=== PATIENT | male | born 1975 | race Caucasian/White ===

== ENCOUNTER 2018-08-06 10:36 | Emergency (ER) | payer MEDICAID ==
[2018-08-06 10:45] VITALS: BP 157/96
--- NOTE | 2018-08-06 10:47 | EDM.PDOC ---
ED HPI GENERAL MEDICAL PROBLEM - General Chief Complaint: Abdominal Pain Stated Complaint: SOB, LIGHT HEADED, PALE Time Seen by Provider: 08/06/18 10:47 Source of Information: Reports: Patient, Old Records, RN, RN Notes Reviewed History Limitations: Reports: No Limitations - History of Present Illness INITIAL COMMENTS - FREE TEXT/NARRATIVE: Pt presents to ER on foot stating that he was out walking around town and his feet and leg became tired and sore, then he developed epigastric abdominal pain. He states that currently he is pain free. He has been having a similar pain on and off at the epigastric abdomen for maybe a month or so. He denies fever, chills, vomiting, diarrhea or constipation. He is not sure if he has heart burn or not. Admits to occasional nausea. Onset: Today Duration: Resolved Prior to Arrival Location: Reports: Abdomen Quality: Reports: Ache Severity: Moderate Improves with: Reports: None Worsens with: Reports: None Associated Symptoms: Reports: No Other Symptoms Upper Abdomen Pain Score (Numeric/FACES): 6 - Related Data Allergies Allergy/AdvReac Type Severity Reaction Status Date / Time No Known Allergies Allergy Verified 08/06/18 10:40 Home Meds: Home Meds Venlafaxine HCl [Venlafaxine ER] 75 mg PO DAILY 02/13/15 [History] Vitamin B Complex [Stress B] 1 each PO DAILY 02/13/15 [History] buPROPion [Wellbutrin SR] 150 mg PO DAILY 08/06/18 [History] Past Medical History Cardiovascular History: Reports: Other (See Below) (congenital valve defect) - Past Surgical History Cardiovascular Surgical History: Reports: Other (See Below) (valve surgery as a small child) Social & Family History - Family History Family Medical History: Unobtainable (pt unsure) - Living Situation & Occupation Living situation: Reports: with Family Occupation: Disabled ED ROS GENERAL - Review of Systems Review Of Systems: ROS reveals no pertinent complaints other than HPI. ED EXAM, GI/ABD - Physical Exam Exam: See Below Exam Limited By: No Limitations General Appearance: Alert, WD/WN, No Apparent Distress Eyes: Bilateral: Normal Appearance Ears: Normal External Exam, Hearing Grossly Normal Nose: Normal Inspection, Normal Mucosa, No Blood Throat/Mouth: Normal Inspection, Normal Lips, Normal Oropharynx, Normal Voice, No Airway Compromise Head: Atraumatic, Normocephalic Neck: Normal Inspection, Supple, Non-Tender, Full Range of Motion Respiratory/Chest: No Respiratory Distress, Lungs Clear, Normal Breath Sounds, No Accessory Muscle Use, Chest Non-Tender Cardiovascular: Regular Rate, Rhythm, No Murmur GI/Abdominal Exam: Normal Bowel Sounds, Soft, Non-Tender, No Distention, No Abnormal Bruit. No: Guarding, Rigid, Rebound (Male) Exam: Deferred Rectal (Males) Exam: Deferred Back Exam: Normal Inspection. No: CVA Tenderness (L), CVA Tenderness (R) Extremities: Normal Inspection Neurological: Alert, Oriented, Normal Gait, No Motor/Sensory Deficits Psychiatric: Normal Mood Skin Exam: Warm, Dry, Intact, Normal Color, No Rash Course - Vital Signs Last Recorded V/S: Last Vital Signs Temp 36.4 C 08/06/18 10:42 Pulse 116 H 08/06/18 10:42 Resp 18 08/06/18 10:42 BP 157/96 H 08/06/18 10:42 Pulse Ox 91 L 08/06/18 10:42 - Orders/Labs/Meds Labs: Laboratory Tests 08/06/18 08/06/18 Range/Units 11:58 11:58 WBC 8.6 (5.0-10.0) 10^3/uL RBC 4.90 (4.6-6.2) 10^6/uL Hgb 14.7 (14.0-18.0) g/dL Hct 44.0 (40.0-54.0) % MCV 89.8 (80-100) fL MCH 30.0 (27.0-34.0) pg MCHC 33.4 (33.0-35.0) g/dL Plt Count 206 (150-450) 10^3/uL Neut % (Auto) 80.4 H (42.2-75.2) % Lymph % (Auto) 10.9 L (20.5-50.1) % [place] % (Auto) 6.0 (2-8) % Eos % (Auto) 2.2 (1.0-3.0) % Baso % (Auto) 0.5 (0.0-1.0) % Sodium 137 (135-145) mmol/L Potassium 4.4 (3.6-5.0) mmol/L Chloride 102 (101-111) mmol/L Carbon Dioxide 25.0 (21.0-31.0) mmol/L Anion Gap 14.4 BUN 18 (7-18) mg/dL Creatinine 1.1 (0.6-1.3) mg/dL Est Cr Clr Drug Dosing 80.56 mL/min Estimated GFR (MDRD) > 60 BUN/Creatinine Ratio 16.36 Glucose 106 H (74-105) mg/dL Calcium 9.1 (8.4-10.2) mg/dl Total Bilirubin 1.1 H (0.2-1.0) mg/dL AST 27 (10-42) IU/L ALT 15 (10-60) IU/L Alkaline Phosphatase 46 (42-121) IU/L Total Protein 6.8 (6.7-8.2) g/dl Albumin 4.2 (3.2-5.5) g/dl Globulin 2.6 Albumin/Globulin Ratio 1.62 Amylase 70 (28-100) U/L Lipase 65 H (22-51) U/L Departure - Departure Time of Disposition: 12:53 Disposition: Home, Self-Care 01 Condition: Good Clinical Impression: Abdominal pain Qualifiers: Abdominal location: epigastric Qualified Code(s): R10.13 - Epigastric pain - Discharge Information *PRESCRIPTION DRUG MONITORING PROGRAM REVIEWED*: No *COPY OF PRESCRIPTION DRUG MONITORING REPORT IN PATIENT ANNELIESE: No Instructions: Abdominal Pain, Adult, [id number] Forms: ED Department Discharge Additional Instructions: Rx: Ranitidine 150mg Follow up in clinic with your primary doctor this week or next week for recheck , and gallbladder evaluation if needed.
[2018-08-06 12:33] LABS: ANION GAP 14.4; CHLORIDE,CL 102 mmol/L (101-111); SODIUM,NA 137 mmol/L (135-145)
== END 2018-08-06 13:03 | disposition home or self-care (01) ==
LOC: DL.ED 10:36
DX: R10.13 Epigastric pain (principal); Z79.899 Other long term (current) drug therapy
CPT/HCPCS: 36415; 80053; 82150; 83690; 85025; 99285

== ENCOUNTER 2022-09-06 05:54 | Day surgery (SDC) | payer MEDICAID ==
[2022-09-06] MEDS ORDERED: Midazolam 1 MG/ML 2 ML SDV IV ONE (05:55)
[2022-09-06] MEDS ORDERED: fentaNYL 100 MCG/2 ML SDV IV ONE (05:55)
[2022-09-06] MEDS ORDERED: fentaNYL 100 MCG/2 ML SDV ONE (06:17)
[2022-09-06] MEDS ORDERED: Midazolam 1 MG/ML 2 ML SDV ONE (06:17)
[2022-09-06] MEDS: Dextrose 5%-0.45% NaCl 1,000 ML IV SCH (06:20)
[2022-09-06] MEDS: fentaNYL 100 MCG/2 ML SDV IV ONE ×2 (07:13→07:14)
[2022-09-06] MEDS: Midazolam 1 MG/ML 2 ML SDV IV ONE ×2 (07:15→07:16)
[2022-09-06 10:17] VITALS: BP 124/70; PULSE 80
== END 2022-09-06 09:53 | disposition home or self-care (01) ==
LOC: DL.ENDO 05:54
PROVIDERS: ATTEND Internal Medicine Gastroenterology
DX: K22.2 Esophageal obstruction (principal); K21.9 Gastro-esophageal reflux disease without esophagitis; K22.10 Ulcer of esophagus without bleeding; R23.4 Changes in skin texture; E66.09 Other obesity due to excess calories; F90.9 Attention-deficit hyperactivity disorder, unspecified type; E78.5 Hyperlipidemia, unspecified; H69.80 Other specified disorders of Eustachian tube, unspecified ear; I10 Essential (primary) hypertension; Z88.8 Allergy status to other drugs, medicaments and biological substances; Z98.890 Other specified postprocedural states; Z68.27 Body mass index [BMI] 27.0-27.9, adult
CPT/HCPCS: 43239; 87077; J2250; J3010; J7042

== ENCOUNTER → 2022-12-12 | Day surgery (SDC) | payer MEDICAID ==
[~2022-12-12] MED LIST: Dextrose 5%-0.45% NaCl 1,000 ML IV SCH; Midazolam 1 MG/ML 2 ML SDV IV ONE; Midazolam 1 MG/ML 2 ML SDV ONE; Sodium Chloride 0.9% 10 ML Syringe FLUSH PRN; Sodium Chloride 0.9% 10 ML Syringe FLUSH SCH; fentaNYL 100 MCG/2 ML SDV IV ONE; fentaNYL 100 MCG/2 ML SDV ONE
[2022-12-12 10:19] VITALS: BP 110/81; PULSE 88
== END ==
LOC: DL.ENDO 05:52
PROVIDERS: ATTEND Internal Medicine Gastroenterology
DX: Z12.11 Encounter for screening for malignant neoplasm of colon (principal); K21.9 Gastro-esophageal reflux disease without esophagitis; I10 Essential (primary) hypertension; F98.8 Other specified behavioral and emotional disorders with onset usually occurring in childhood and adolescence; Z98.890 Other specified postprocedural states; Z88.5 Allergy status to narcotic agent
CPT/HCPCS: J2250; J3010; J7042